=== PATIENT | female | born 1950 | race Caucasian/White ===

== ENCOUNTER 2017-03-12 00:19 | Day surgery (SDC) | payer MEDICARE, OTHER ==
[2017-03-12] VITALS (15 sets, daily range): BP systolic 146–182; BP diastolic 83–120; PULSE 61–74; RESP 12–18; O2SAT 95–100
[~2017-03-12] VITALS: Ht 152.4 cm; Wt 48.6 kg
[~2017-03-12 00:19] MED LIST: GABA-502 PO; LEVO100T6 PO; LISI-567 PO; LOVA20TA PO; METO-274 PO; OMEP20CA11 PO; OXYB5TAB10 PO; SOTA120T PO; WARF3TAB7 PO; WARF4TAB6 PO
[2017-03-12] MEDS ORDERED: Methohexital 10 mg/mL 50 mL Inj IV ONE (07:31)
[2017-03-12] MEDS ORDERED: LEVO125T6 PO (07:32)
[2017-03-12] MEDS ORDERED: METO50TA3 PO (07:32)
[2017-03-12] MEDS ORDERED: SOTA80TA PO (07:32)
[2017-03-12] MEDS ORDERED: POTA20TA7 PO (07:32)
[2017-03-12] MEDS ORDERED: WARF2TAB7 PO (07:32)
[2017-03-12] MEDS ORDERED: OMEP40CA36 PO (07:32)
[2017-03-12] MEDS ORDERED: 0.9% Sodium Chloride 1,000 ML IV ONE (07:35)
[2017-03-12] MEDS ORDERED: Atropine 1 mg/10 mL (Code) Syringe ONE (07:53)
--- NOTE | 2017-03-12 09:06 | NUR ---
0830, STAND BY FOR ELECTIVE CARDIOVERSION DONE, pT ON o2 at 2.5 lpm, o2 sats 98% , ETCO2 15 to 22 ( pt was mouth breathing after meds and it was difficult to picker tender/ cardioverter with 200 joules times one, NSR obtained. pt had no airway issues and was drowsy but responding appropriately and easily after procedure
--- NOTE | 2017-03-12 09:41 | PROCED ---
[address] [address] PROCEDURE NOTE PATIENT: NOVA MCKNIGHT : 1950 MR#: [id number] ADMIT: 03/12/2017 JOB ID: [id number] DATE OF SERVICE: 03/12/2017 PREOPERATIVE DIAGNOSIS(ES): 1. Atrial fibrillation. 2. Sick sinus syndrome. 3. Dual-chamber pacemaker in place. POSTOPERATIVE DIAGNOSIS(ES): 1. Sinus rhythm. 2. Sick sinus syndrome. 3. Dual-chamber pacemaker in place with normal function. PROCEDURES PERFORMED: 1. Direct current cardioversion. 2. Periprocedural pacemaker interrogation and programming. SURGEON: Yanick Diaz MD ASSISTANTS: None. SEDATION: Versed 1 mg and a total of 25 mg of Brevital were utilized for appropriate level of sedation. INDICATION: The patient is a pleasant 67-year-old woman with sick sinus syndrome dual-chamber pacemaker in place and paroxysmal atrial fibrillation that has become persistent over the last few months. Her sotalol was increased and she comes in for a direct current cardioversion. After discussion of risks and benefits and after confirmation of adequate anticoagulation with warfarin. PROCEDURAL DESCRIPTION: Following informed consent the patient was taken to the procedure room. With defibrillator patches placed in the anterior and posterior positions after adequate sedation, a 200 joule biphasic synchronized shock was used to convert her to sinus rhythm. Her pacemaker was interrogated showing excellent sensing threshold and impedance on the RV lead. This is the threshold and impedance in the RV lead that was stable, sensed P waves were about 0.8 mV. I reduced her sensitivity to 0.2 mV. . COMPLICATIONS: None. ESTIMATED BLOOD LOSS: None. IMPRESSION: Successful direct current cardioversion. PLAN: 1. Recovery and discharge from the [facility]. 2. Continue current medication regimen including warfarin and sotalol. 3. Follow up with myself or Paco Phillips in clinic in four weeks. Yanick Diaz MD, electrophysiology attending, was present for and supervised/performed all aspects of this procedure.
--- NOTE | 2017-03-12 09:50 | NUR ---
Cardioversion Pt arrived to [facility] at 0700, accompanied by . Bedside INR 2.9. IV started and admission questions completed. Med rec updated using pt's list/interview. Cardioversion completed at 0830; successful after 1 shock. Vitals stable throughout recovery. Discharge instructions discussed, w/ present, including the need to verify Sotalol dose and call Dr. Diaz's office with info. Care notes given on Cardioversion and post sedation. IV d/c'd intact. Pt left [facility] at 0940 in stable condition. transporting home.
== END 2017-03-12 23:59 | disposition home or self-care (01) ==
LOC: SOUO 00:19
PROVIDERS: ATTEND Internal Medicine Cardiovascular Disease
DX: I48.1 Persistent atrial fibrillation (principal); Z79.01 Long term (current) use of anticoagulants; E78.5 Hyperlipidemia, unspecified; Z95.0 Presence of cardiac pacemaker; I11.9 Hypertensive heart disease without heart failure; I49.5 Sick sinus syndrome; I47.1 Supraventricular tachycardia
CPT/HCPCS: 92960; 93005; 94799; 99152; J2250